=== PATIENT | female | born 1995 | race African-American/Black ===

== ENCOUNTER 2019-11-29 07:00 | Outpatient (CLI) | payer OTHER | END 2019-11-29 23:59 | disposition home or self-care (01) | LOC: LAB.R 07:00 | PROVIDERS: ATTEND Physician Assistant | DX: R30.0 Dysuria (principal) | CPT/HCPCS: 87077; 87086 ==

== ENCOUNTER 2019-12-06 08:00 | Outpatient (CLI) | payer OTHER ==
--- NOTE | 2019-12-06 10:26 | XRAY Report ---
PROCEDURE: Hand 3 View LT INDICATIONS: LEFT HAND/JOINT PAIN [facility] TECHNIQUE: 3 views of the hand(s) acquired. COMPARISON: None FINDINGS: Bones: No fractures or dislocations. No suspicious bony lesions. Soft tissues: No suspicious soft tissue calcifications. IMPRESSION: Normal study. Reviewed by: Wali Hsu MD on 12/06/2019 10:25 AM PDT Approved by: Wali Hsu MD on 12/06/2019 10:25 AM PDT Station ID: [id number]
== END 2019-12-06 23:59 | disposition home or self-care (01) ==
LOC: DI.S 08:00
PROVIDERS: ATTEND Physician Assistant
DX: M25.542 Pain in joints of left hand (principal)

== ENCOUNTER 2023-03-24 11:03 | Outpatient (CLI) | payer BC ==
[2023-03-24 15:15] LABS: BASOPHILS % (AUTO) 0.6 %; EOSINOPHILS % (AUTO) 0.6 %; HCT - HEMATOCRIT 43.7 % (37.0-47.0); HGB - HEMOGLOBIN 14.1 g/dL (12.0-16.0); LYMPHOCYTES % (AUTO) 19.8 %; MEAN CORPUSCULAR HEMOGLOBIN 28.1 pg (27.0-31.0); MEAN CORPUSCULAR HGB CONC 32.3 g/dL (32.0-36.0); MEAN CORPUSCULAR VOLUME 87.2 fL (81.0-99.0); MEAN PLATELET VOLUME 10.6 fL (7.9-10.8); MONOCYTES # (AUTO) 0.4 10^3/uL (0.0-1.0); MONOCYTES % (AUTO) 7.5 %; NEUTROPHILS # (AUTO) 3.6 10^3/uL (1.5-6.6); NEUTROPHILS % (AUTO) 71.3 %; PLT - PLATELET COUNT 360 10^3/uL (130-450); RED BLOOD COUNT 5.01 10^6/uL (4.20-5.40); RED CELL DISTRIBUTION WIDTH 13.5 % (12.0-15.0)
[2023-03-24 16:06] LABS: THYROID STIMULATING HORMONE 0.83 uIU/mL (0.34-5.60)
[2023-03-24 16:23] LABS: ALBUMIN 4.8 g/dL (3.2-5.5); ALBUMIN/GLOBULIN RATIO 1.8 (1.0-2.2); ALKALINE PHOSPHATASE 44 IU/L (42-121); ALT ALANINE AMINOTRANSFERASE 7 IU/L (10-60); AST ASPARTATE AMINOTRANSFERASE 11 IU/L (10-42); BILIRUBIN,TOTAL 1.7 mg/dL (0.2-1.0); BUN - BLOOD UREA NITROGEN 14 mg/dL (6-20); CALCIUM 10.1 mg/dL (8.5-10.3); CARBON DIOXIDE - CO2 28 mmol/L (21-32); CHLORIDE 105 mmol/L (101-111); CHOL/HDL RATIO 1.8 (<4.4); CHOLESTEROL 198 mg/dL; CREATININE 0.9 mg/dL (0.6-1.3); GFR - MDRD 91 (>89); GLUCOSE 100 mg/dL (74-104); HDL CHOLESTEROL 109 mg/dL; LDL CHOLESTEROL,CALCULATED 74 mg/dL; LDL/HDL RATIO 0.7 (<4.4); POTASSIUM 3.7 mmol/L (3.5-4.5); SODIUM 139 mmol/L (135-145); TOTAL PROTEIN 7.5 g/dL (6.4-8.9); TRIGLYCERIDES 74 mg/dL (48-352); VLDL CHOLESTEROL 15 mg/dL
== END 2023-03-24 11:04 | disposition home or self-care (01) ==
LOC: LAB.S 11:03
PROVIDERS: ATTEND Physician Assistant Medical
DX: Z13.9 Encounter for screening, unspecified (principal)
CPT/HCPCS: 36415; 80053; 80061; 83721; 84443; 85025

== ENCOUNTER 2023-10-13 13:30 | Outpatient (CLI) | payer BC ==
[2023-10-13 20:26] LABS: BASOPHILS % (AUTO) 0.7 %; EOSINOPHILS # (AUTO) 0.1 10^3/uL (0.0-0.7); EOSINOPHILS % (AUTO) 2.1 %; HCT - HEMATOCRIT 44.3 % (37.0-47.0); LYMPHOCYTES # (AUTO) 1.7 10^3/uL (1.5-3.5); LYMPHOCYTES % (AUTO) 29.6 %; MEAN CORPUSCULAR HEMOGLOBIN 27.8 pg (27.0-31.0); MEAN CORPUSCULAR HGB CONC 31.6 g/dL (32.0-36.0); MEAN CORPUSCULAR VOLUME 87.9 fL (81.0-99.0); MEAN PLATELET VOLUME 11.1 fL (7.9-10.8); MONOCYTES # (AUTO) 0.5 10^3/uL (0.0-1.0); MONOCYTES % (AUTO) 8.8 %; NEUTROPHILS # (AUTO) 3.3 10^3/uL (1.5-6.6); NEUTROPHILS % (AUTO) 58.6 %; PLT - PLATELET COUNT 349 10^3/uL (130-450); RED BLOOD COUNT 5.04 10^6/uL (4.20-5.40); WHITE BLOOD COUNT 5.7 x10^3/uL (4.8-10.8)
[2023-10-13 20:47] LABS: ALBUMIN 4.7 g/dL (3.2-5.5); ALBUMIN/GLOBULIN RATIO 1.9 (1.0-2.2); ALKALINE PHOSPHATASE 47 IU/L (42-121); ALT ALANINE AMINOTRANSFERASE 15 IU/L (10-60); AST ASPARTATE AMINOTRANSFERASE 12 IU/L (10-42); BUN - BLOOD UREA NITROGEN 17 mg/dL (6-20); CALCIUM 9.9 mg/dL (8.5-10.3); CARBON DIOXIDE - CO2 27 mmol/L (21-32); CHLORIDE 102 mmol/L (101-111); CHOL/HDL RATIO 2.1 (<4.4); CHOLESTEROL 191 mg/dL; CREATININE 0.7 mg/dL (0.6-1.3); GFR - MDRD 122 (>89); GLUCOSE 89 mg/dL (74-104); HDL CHOLESTEROL 90 mg/dL; LDL CHOLESTEROL,CALCULATED 74 mg/dL; LDL/HDL RATIO 0.8 (<4.4); POTASSIUM 3.5 mmol/L (3.5-4.5); SODIUM 136 mmol/L (135-145); TOTAL PROTEIN 7.2 g/dL (6.4-8.9); TRIGLYCERIDES 133 mg/dL; VLDL CHOLESTEROL 27 mg/dL
[2023-10-13 21:01] LABS: THYROID STIMULATING HORMONE 0.77 uIU/mL (0.34-5.60)
[2023-10-13 22:09] LABS: ESTIMATED AVERAGE GLUCOSE 108 mg/dL (70-100); HEMOGLOBIN A1c% 5.4 % (4.27-6.07)
== END 2023-10-13 13:31 | disposition home or self-care (01) ==
LOC: LAB.S 13:30
PROVIDERS: ATTEND Nurse Practitioner Gerontology
DX: I10 Essential (primary) hypertension (principal)
CPT/HCPCS: 36415; 80053; 80061; 83036; 83721; 83880; 84443; 85025

== ENCOUNTER 2023-11-06 14:48 | Outpatient (CLI) | payer BC | END 2023-11-06 14:49 | disposition home or self-care (01) | LOC: DI 14:48 | PROVIDERS: ATTEND Nurse Practitioner Gerontology | DX: I35.1 Nonrheumatic aortic (valve) insufficiency (principal); I77.810 Thoracic aortic ectasia | CPT/HCPCS: 93307 ==